=== PATIENT | male | born 1990 | race Caucasian/White ===

== ENCOUNTER 2020-03-09 10:37 | Emergency (ER) | payer OTHER ==
[~2020-03-09] VITALS: Ht 175.3 cm; Wt 63.6 kg
[2020-03-09 12:13] VITALS: BP 131/81
== END 2020-03-09 12:27 | disposition home or self-care (01) ==
LOC: EMS 10:41
DX: S92.511A Displaced fracture of proximal phalanx of right lesser toe(s), initial encounter for closed fracture (principal); F12.90 Cannabis use, unspecified, uncomplicated; F17.210 Nicotine dependence, cigarettes, uncomplicated; W22.8XXA Striking against or struck by other objects, initial encounter; Y93.89 Activity, other specified; Y92.89 Other specified places as the place of occurrence of the external cause; Y99.8 Other external cause status